=== PATIENT | female | born 1985 | race Caucasian/White ===

== ENCOUNTER 2019-11-05 10:07 | Emergency (ER) | payer BC ==
[~2019-11-05] VITALS: Ht 180.3 cm; Wt 97.5 kg
[2019-11-05] MEDS ORDERED: NEOMY/BACITRA/POLYMYXIN B OINT UD PACKET TP ONE ×2 (10:41→10:45)
--- NOTE | 2019-11-05 10:47 | NUR ---
PATIENT WAS SEEN BY MD. XRAYS DONE. US DONE. DC AND FOLLOW UP INSTRUCTIONS GIVEN AND EXPLAINED TO PATIENT WHO STATES SHE UNDERSTANDS ALL INSTRUCTIONS. STERILE BANDAID APPIED TO ABRASION.
== END 2019-11-05 10:50 | disposition home or self-care (01) ==
LOC: ER 10:07
DX: O26.892 Other specified pregnancy related conditions, second trimester (principal); S90.811A Abrasion, right foot, initial encounter; Z3A.22 22 weeks gestation of pregnancy; X50.1XXA Overexertion from prolonged static or awkward postures, initial encounter; Y93.89 Activity, other specified; Y92.89 Other specified places as the place of occurrence of the external cause; Y99.8 Other external cause status
CPT/HCPCS: 73630; 76856; A4663